=== PATIENT | male | born 1980 | race Caucasian/White ===

== ENCOUNTER 2016-06-24 19:27 | Emergency (ER) | payer MEDICARE, OTHER ==
[~2016-06-24] VITALS: Ht 190.5 cm; Wt 109.5 kg
[~2016-06-24 19:27] MED LIST: AMOXICILLIN 8751 TAB PO; BACTRIM DS 8001 TAB PO; CEPHALEXIN500 M1 PO; CLEOCIN HC150 MG/CAP PO; CLINDAMYCIN300 MG PO; CLOMID50 MG PO; CLONIDINE0.1 MG PO; DAZIDOX10 MG PO; DITROPAN XL10 MG PO; DITROPAN XL15 MG PO; FLEXERIL; FLEXERIL 1010 MG/TAB PO; FLEXERIL10 MG PO; GABAPENTIN100 M1 PO; KLONOPIN1 MG PO; LEVAQUIN 5500 MG/TA1 PO; LODINE200 MG PO; LORTAB 10/500 51 TAB PO; LORTAB 5/500 501 TAB PO; METHADONE H10 MG/TAB PO; NAPROSYN500 MG PO; NEURONTIN300 MG/CAP PO; NEURONTIN800 MG/TAB PO; NORCO 325 MG-101 TAB PO; NORCO 325 MG-51 TAB PO; OXYBUTYNIN10 MG PO; PERCOCET 325 MG1 TA2 PO; PERCOCET 325 MG1 TAB PO; PERCOCET 500 MG1 TAB PO; SEROQUEL; SEROQUEL 1100 MG/TAB PO; ULTRAM 50MG TAB50 MG PO; VIAGRA100 MG PO; WELLBUTRIN SR100 M1 PO; XANAX 0.5MG0.5 MG PO; ZOFRAN8 MG PO; ZOLOFT 100MG100 MG PO
[2016-06-24 19:30] VITALS: BP 156/104
[2016-06-24] MEDS ORDERED: NEURONTIN800 MG/TAB PO (19:34)
[2016-06-24] MEDS ORDERED: XANAX 1MG1 MG PO (19:34)
[2016-06-24 20:05] VITALS: PULSE 102; TEMP 98.2
== END 2016-06-24 20:05 | disposition home or self-care (01) ==
LOC: COL.ER 19:27
DX: K60.2 Anal fissure, unspecified (principal)

== ENCOUNTER 2016-06-26 18:55 | Emergency (ER) | payer MEDICARE, OTHER ==
[~2016-06-26] VITALS: Ht 190.5 cm; Wt 108.6 kg
[~2016-06-26 18:55] MED LIST changes: +XANAX 1MG1 MG PO
[2016-06-26 18:59] VITALS: TEMP 97.5
[2016-06-26 20:25] LABS: INR 1.1 (0.8-3.0); PROTHROMBIN TIME 12.1 SECONDS (9.7-12.8)
[2016-06-26 20:27] LABS: PARTIAL THROMBOPLASTIN TIME 31.6 SECONDS (26.0-37.0)
[2016-06-26 20:32] LABS: PH 7 (5-8); SQUAMOUS EPITHELIAL None Seen /hpf; URINE APPEARANCE Clear; URINE BACTERIA None Seen /hpf; URINE BILIRUBIN Negative (NEGATIVE); URINE BLOOD Negative (NEGATIVE); URINE COLOR Yellow; URINE GLUCOSE Negative (NEGATIVE); URINE KETONE Negative (NEGATIVE); URINE RBC None Seen /hpf; URINE UROBILINOGEN Negative (NEGATIVE); URINE WBC 0-2 /hpf
[2016-06-26 20:35] LABS: ADJUSTED CALCIUM 8.5 mg/dL (8.4-10.2); ALANINE AMINOTRANSFERASE 35 U/L (21-72); ALBUMIN 4.2 gm/dL (3.5-5.0); ALKALINE PHOSPHATASE 86 U/L (50-136); ANION GAP 10 mmol/L (7-16); BILIRUBIN,TOTAL 0.6 mg/dL (0.0-1.0); BLOOD UREA NITROGEN 7 mg/dL (9-20); C-REACTIVE PROTEIN < 0.5 mg/dL (0.0-0.9); CALCIUM 8.7 mg/dL (8.4-10.2); CARBON DIOXIDE 30 mmol/L (22-30); CHLORIDE 101 mmol/L (98-107); CREATININE, serum 0.95 mg/dL (0.66-1.25); GLUCOSE 75 mg/dL (74-106); LIPASE 54 U/L (23-300); POTASSIUM 3.6 mmol/L (3.4-5.0); SODIUM 142 mmol/L (137-145); TOTAL PROTEIN 7.6 gm/dL (6.4-8.2)
[2016-06-26 21:42] LABS: BASO % 0.2 % (0.0-2.0); EOS # 0.1 (0.0-0.7); EOS % 1.4 % (0-4.0); GRAN # 5.7 (1.4-6.5); GRAN % 59.7 % (42.2-75.2); HEMATOCRIT 36.7 % (42.0-52.0); HEMOGLOBIN 12.4 g/dl (13.5-18.0); LYMPH # 2.9 (1.2-3.4); LYMPH % 29.9 % (20.0-51.0); MEAN CELL VOLUME 88 fl (80.0-100.0); MEAN CORPUSCULAR HEMOGLOBIN 30 pg (27.0-31.0); MEAN CORPUSCULAR HGB CONC 34 g/dl (33.0-37.0); MEAN PLATELET VOLUME 9.6 fl (7.4-10.4); MONO # 0.8 (0.1-0.6); MONO % 8.6 % (1.7-9.3); PLATELET COUNT 209 K/mm3 (130-400); RED BLOOD COUNT 4.16 M/mm3 (4.20-5.60); REDCELL DISTRIBUTION WIDTH-CV 13.1 % (11.5-14.5); WHITE BLOOD COUNT 9.5 K/mm3 (4.8-10.8)
[2016-06-26] MEDS ORDERED: LEVAQUIN 750MG750 M1 PO (21:44)
[2016-06-26] MEDS ORDERED: FLAGYL500 MG PO (21:44)
[2016-06-26 22:00] VITALS: BP 130/85; PULSE 94
[2016-06-27] MEDS ORDERED: ULTRAM 50MG TAB50 MG PO (18:49)
[2016-06-27] MEDS ORDERED: ZOFRAN8 MG PO (18:49)
== END 2016-06-26 22:00 | disposition home or self-care (01) ==
LOC: COL.ER 18:55
PROVIDERS: Emergency Medicine
DX: K60.2 Anal fissure, unspecified (principal); K57.30 Diverticulosis of large intestine without perforation or abscess without bleeding; R10.2 Pelvic and perineal pain
CPT/HCPCS: J1170; J7030; Q9967

== ENCOUNTER 2016-06-27 17:44 | Emergency (ER) | payer MEDICARE, OTHER ==
[~2016-06-27] VITALS: Ht 190.5 cm; Wt 108.6 kg
[~2016-06-27 17:44] MED LIST changes: +FLAGYL500 MG PO; +LEVAQUIN 750MG750 M1 PO
[2016-06-27 17:47] VITALS: BP 151/86; PULSE 127; TEMP 97.5
[2016-06-27] MEDS ORDERED: ULTRAM 50MG TAB50 MG PO (18:49)
[2016-06-27] MEDS ORDERED: ZOFRAN8 MG PO (18:49)
[2016-06-27 19:04] LABS: BASO % 0.3 % (0.0-2.0); EOS # 0.1 (0.0-0.7); EOS % 1.5 % (0-4.0); GRAN # 3.4 (1.4-6.5); GRAN % 51.7 % (42.2-75.2); HEMATOCRIT 39.9 % (42.0-52.0); HEMOGLOBIN 13.5 g/dl (13.5-18.0); LYMPH # 2.5 (1.2-3.4); LYMPH % 38.8 % (20.0-51.0); MEAN CELL VOLUME 87 fl (80.0-100.0); MEAN CORPUSCULAR HEMOGLOBIN 29 pg (27.0-31.0); MEAN CORPUSCULAR HGB CONC 34 g/dl (33.0-37.0); MEAN PLATELET VOLUME 9.5 fl (7.4-10.4); MONO # 0.5 (0.1-0.6); MONO % 7.5 % (1.7-9.3); PLATELET COUNT 209 K/mm3 (130-400); RED BLOOD COUNT 4.61 M/mm3 (4.20-5.60); REDCELL DISTRIBUTION WIDTH-CV 13.2 % (11.5-14.5); WHITE BLOOD COUNT 6.5 K/mm3 (4.8-10.8)
[2016-06-27 19:14] LABS: ADJUSTED CALCIUM 9.1 mg/dL (8.4-10.2); ALBUMIN 4.2 gm/dL (3.5-5.0); BILIRUBIN,TOTAL 0.5 mg/dL (0.0-1.0); CALCIUM 9.3 mg/dL (8.4-10.2); CREATININE, serum 0.9 mg/dL (0.66-1.25); POTASSIUM 3.6 mmol/L (3.4-5.0); TOTAL PROTEIN 7.5 gm/dL (6.4-8.2)
[2016-06-28] MEDS ORDERED: DAZIDOX10 MG PO (16:54)
[2016-06-28] MEDS ORDERED: DOLOPHINE HCL5 MG PO (16:55)
== END 2016-06-27 19:56 | disposition home or self-care (01) ==
LOC: COL.ER 17:44
PROVIDERS: Emergency Medicine
DX: R10.31 Right lower quadrant pain (principal); Z79.891 Long term (current) use of opiate analgesic; G89.29 Other chronic pain
CPT/HCPCS: J1170; J2405; J7030

== ENCOUNTER 2016-06-28 12:36 | Emergency (ER) | payer MEDICARE, OTHER ==
[~2016-06-28] VITALS: Ht 190.5 cm; Wt 108.6 kg
[2016-06-28 12:39] VITALS: TEMP 97.6
[2016-06-28 13:04] LABS: BASO % 0.3 % (0.0-2.0); EOS # 0.1 (0.0-0.7); GRAN # 3.6 (1.4-6.5); GRAN % 60.3 % (42.2-75.2); HEMATOCRIT 42.2 % (42.0-52.0); HEMOGLOBIN 13.8 g/dl (13.5-18.0); LYMPH # 1.9 (1.2-3.4); MEAN CELL VOLUME 89 fl (80.0-100.0); MEAN CORPUSCULAR HEMOGLOBIN 29 pg (27.0-31.0); MEAN CORPUSCULAR HGB CONC 33 g/dl (33.0-37.0); MEAN PLATELET VOLUME 9.4 fl (7.4-10.4); MONO # 0.4 (0.1-0.6); MONO % 7.1 % (1.7-9.3); PLATELET COUNT 230 K/mm3 (130-400); RED BLOOD COUNT 4.72 M/mm3 (4.20-5.60); REDCELL DISTRIBUTION WIDTH-CV 13.5 % (11.5-14.5)
[2016-06-28 13:18] LABS: ADJUSTED CALCIUM 9.2 mg/dL (8.4-10.2); ALANINE AMINOTRANSFERASE 29 U/L (21-72); ALBUMIN 4.4 gm/dL (3.5-5.0); ALKALINE PHOSPHATASE 86 U/L (50-136); ANION GAP 14 mmol/L (7-16); BILIRUBIN,TOTAL 0.7 mg/dL (0.0-1.0); BLOOD UREA NITROGEN 5 mg/dL (9-20); CALCIUM 9.5 mg/dL (8.4-10.2); CARBON DIOXIDE 27 mmol/L (22-30); CHLORIDE 105 mmol/L (98-107); CREATININE, serum 0.92 mg/dL (0.66-1.25); GLUCOSE 124 mg/dL (74-106); POTASSIUM 3.6 mmol/L (3.4-5.0); SODIUM 146 mmol/L (137-145); TOTAL PROTEIN 7.8 gm/dL (6.4-8.2)
[2016-06-28 13:20] LABS: ACETAMINOPHEN < 10 ug/mL (10-30); SALICYLATE < 1.0 mg/dL
[2016-06-28 13:36] LABS: AMPHETAMINE URINE NEGATIVE; BARBITURATES URINE NEGATIVE; BENZODIAZEPINES URINE POSITIVE; BUPRENORPHINE URINE NEGATIVE; METHADONE URINE POSITIVE; OPIATES URINE POSITIVE; OXYCODONE URINE NEGATIVE; PHENCYCLIDINE URINE NEGATIVE; PROPOXYPHENE URINE NEGATIVE; THC CANNABINOIDS URINE NEGATIVE
[2016-06-28] MEDS ORDERED: DAZIDOX10 MG PO (16:54)
[2016-06-28] MEDS ORDERED: DOLOPHINE HCL5 MG PO (16:55)
[2016-06-28 23:00] VITALS: BP 141/96; PULSE 95
== END 2016-06-28 23:50 ==
LOC: COL.ER 12:36
PROVIDERS: Emergency Medicine
DX: F32.9 Major depressive disorder, single episode, unspecified (principal); G89.29 Other chronic pain; F43.10 Post-traumatic stress disorder, unspecified